=== PATIENT | male | born 1995 | race Caucasian/White ===

== ENCOUNTER 2017-05-22 19:35 | Emergency (ER) | payer SELFPAY ==
[2017-05-22 19:39] VITALS: BMI 23.6
[2017-05-22 20:26] LABS: BILIRUBIN,URINE 1+ (NEGATIVE); BLOOD/HEMOGLOBIN,URINE 1+ (NEGATIVE); GLUCOSE, URINE NEGATIVE (NEGATIVE); KETONES,URINE 3+ (NEGATIVE); LEUKOCYTE ESTERASE ,URINE 1+ (NEGATIVE); NITRITES,URINE NEGATIVE (NEGATIVE); PROTEIN,URINE 2+ (NEGATIVE); UROBILINOGEN,URINE 2+ (NORMAL)
[2017-05-22 20:36] LABS: APPEARANCE,URINE CLOUDY (CLEAR); COLOR,URINE DARK YELLOW (YELLOW)
[2017-05-22 20:37] LABS: AMORPHOUS SEDIMENT,UR 1+ /HPF (NEGATIVE); BACTERIA,URINE 2+ /HPF (NEGATIVE); HYALINE CASTS, URINE MODERATE /LPF (NEGATIVE); MUCUS,URINE MANY /HPF (NEGATIVE); RBC,URINE 0-3 /HPF (NEGATIVE); SQUAMOUS EPITHELIAL CELL,UR RARE /HPF (NEGATIVE)
[2017-05-22 20:50] VITALS: BP 113/68
[2017-05-22] MEDS ORDERED: NS 1000 ML 1,000 ML IV ONE ×2 (21:29→23:13)
[2017-05-22] MEDS ORDERED: NS 1000 ML 1,000 ML ONE ×2 (21:30→23:15)
--- NOTE | 2017-05-22 21:35 | DR.GENAD ---
HPI - PCP Primary Care Physician: nfd - Complaint/Symptoms Chief Complaint Doctors Comments: History as stated. Chief Complaint:: pt states" my heart is runny away and i feel dizzy i haven't eaten in a few days cause i have not been hungry" - Source History Provided: Patient - Mode of Arrival Mode of Arrival: Wheelchair - Timing Onset of Chief Complaint: 05/20/17 PMH - PMH Past Medical History: No Past Surgical History: No Surgical History: Ortho Surgery - Family History History of Family Medical Conditions: Yes Family Medical History: Diabetes Mellitus, Cancer - Social History Type of Tobacco Use: Cigarettes Does any household member use tobacco: No Alcohol Use: None Do you use any recreational Drugs:: No Lives With: Family Lives Where: Home - infectious screening In the last 2 months have you had wt loss of >10#?: NO Have you had fever, night sweats or hemotysis?: No Have you traveled outside the country in the last 6 months?: No Isolation: Standard ROS - Review of Systems Eyes: No Symptoms Reported ENTM: No Symptoms Reported Respiratoy: No Symptoms Reported Cardiovascular: No Symptoms Reported Gastrointestinal/Abdominal: No Symptoms Reported Genitourinary: No Symptoms Reported Neurological: No Symptoms Reported Musculoskeletal: No Symptoms Reported Integumentary: No Symptoms Reported Hematologic/Lymphatic: No Symptoms Reported Endocrine: No Symptoms Reported, Increased Hunger All Other Systems: Reviewed and Negative PE - Vital Signs Vitals: Temperature 98.6 F Pulse Rate [Apical] 97 Pulse Rate 115 Respiratory Rate 26 Blood Pressure [Left Arm] 113/68 Blood Pressure 118/78 O2 Sat by Pulse Oximetry 99 - General Limitations: No Limitations General Appearance: Alert, Anxious - Head Head Exam: Normal Inspection, Atraumatic - Eyes Eye exam: Normal Appearance, PERRL, EOMI - ENT ENT Exam: Normal Exam External Ear Exam: Normal External Inspection TM/Canal Exam: Bilateral Normal Nose Exam: Normal Nose Exam Mouth Exam: Normal Inspection Throat Exam: Normal Inspection - Neck Neck Exam: Normal Inspection - Chest Chest Inspection: Normal Inspection - Respiratory Respiratory Exam: Normal Lung Sounds Bilat Respiratory Exam: Bilateral Clear to Auscultation - Cardiovascular Cardiovascular Exam: Regular Rate, Normal Rhythm Course - Reevaluation 1st: Improved ROR - Labs Reviewed Result Diagrams: 05/22/17 21:40 05/22/17 21:40 Laboratory: WBC 7.9 X10^3/uL (3.6-10.0) 05/22/17 21:40 RBC 5.83 X10^6/uL (4.7-6.0) 05/22/17 21:40 Hgb 17.7 g/dL (13.5-18.0) 05/22/17 21:40 Hct 50.8 % (42.0-54.0) 05/22/17 21:40 MCV 87.2 fL (80.0-100.0) 05/22/17 21:40 MCH 30.4 pg (27.0-34.0) 05/22/17 21:40 MCHC 34.9 g/dL (33.0-35.0) 05/22/17 21:40 RDW 13.7 % (11.6-16.5) 05/22/17 21:40 Plt Count 222 X10^3/uL (150.0-450.0) 05/22/17 21:40 MPV 8.1 fL (7.4-11.0) 05/22/17 21:40 Neut % 63.3 % (42.0-75.0) 05/22/17 21:40 Lymph % 21.6 % (21.0-51.0) 05/22/17 21:40 Fallon % 10.0 % (0.0-13.0) 05/22/17 21:40 Eos % 4.1 % (0.9-2.9) H 05/22/17 21:40 Baso % 1.0 % (0.2-1.0) 05/22/17 21:40 Neut # 5.0 x10^3/uL (2.2-4.8) H 05/22/17 21:40 Lymph # 1.7 X10^3/uL (1.3-2.9) 05/22/17 21:40 Fallon # 0.8 x10^3/uL (0.3-0.8) 05/22/17 21:40 Eos # 0.3 x10^3/uL (0.0-0.2) H 05/22/17 21:40 Baso # 0.1 X10^3/uL (0.0-0.1) 05/22/17 21:40 Absolute Nucleated RBC 0.1 /100WBC 05/22/17 21:40 Sodium 140 mmol/L (136-145) 05/22/17 21:40 Corrected Sodium TNP 05/22/17 21:40 Potassium 4.5 mmol/L (3.5-5.1) 05/22/17 21:40 Chloride 102 mmol/L (98-107) 05/22/17 21:40 Carbon Dioxide 28.9 mmol/L (21-32) 05/22/17 21:40 BUN 18 mg/dL (7-18) 05/22/17 21:40 Creatinine 1.06 mg/dL (0.70-1.30) 05/22/17 21:40 Est GFR (MDRD) Af Amer > 60 (>60) 05/22/17 21:40 Est GFR (MDRD) Non-Af > 60 (>60) 05/22/17 21:40 Glucose 81 mg/dL (65-99) 05/22/17 21:40 Calcium 9.3 mg/dL (8.5-10.1) 05/22/17 21:40 Corrected Calcium TNP 05/22/17 21:40 Total Bilirubin 1.00 mg/dL (0.2-1.0) 05/22/17 21:40 AST 85 Units/L (15-37) H 05/22/17 21:40 ALT 36 Units/L (12-78) 05/22/17 21:40 Alkaline Phosphatase 58 Units/L (46-116) 05/22/17 21:40 Total Protein 7.9 g/dL (6.4-8.2) 05/22/17 21:40 Albumin 4.6 g/dL (3.4-5.0) 05/22/17 21:40 Globulin 3.3 g/dL (2.5-4.5) 05/22/17 21:40 Albumin/Globulin Ratio 1.4 Ratio (1.1-2.1) 05/22/17 21:40 Specimen Type Clean catch urine 05/22/17 20:12 Urine Color Dark yellow (YELLOW) 05/22/17 20:12 Urine Appearance Cloudy (CLEAR) 05/22/17 20:12 Urine pH 5.0 (5.0 - 8.0) 05/22/17 20:12 Ur Specific [place] 1.030 (1.000-1.030) 05/22/17 20:12 Urine Protein 2+ (NEGATIVE) 05/22/17 20:12 Urine Glucose (UA) Negative (NEGATIVE) 05/22/17 20:12 Urine Ketones 3+ (NEGATIVE) 05/22/17 20:12 Urine Occult Blood 1+ (NEGATIVE) 05/22/17 20:12 Urine Nitrite Negative (NEGATIVE) 05/22/17 20:12 Urine Bilirubin 1+ (NEGATIVE) 05/22/17 20:12 Urine Urobilinogen 2+ (NORMAL) 05/22/17 20:12 Ur Leukocyte Esterase 1+ (NEGATIVE) 05/22/17 20:12 Urine RBC 0-3 /HPF (NEGATIVE) 05/22/17 20:12 Urine WBC 6-8 /HPF (NEGATIVE) 05/22/17 20:12 Ur Squamous Epith Cells Rare /HPF (NEGATIVE) 05/22/17 20:12 Amorphous Sediment 1+ /HPF (NEGATIVE) 05/22/17 20:12 Urine Bacteria 2+ /HPF (NEGATIVE) 05/22/17 20:12 Hyaline Casts Moderate /LPF (NEGATIVE) 05/22/17 20:12 Urine Mucus Many /HPF (NEGATIVE) 05/22/17 20:12 Ur Culture Indicated? Yes/culture set up 05/22/17 20:12 Urine Opiates Screen Negative (NEG=<300) 05/22/17 20:12 Urine Methadone Screen Negative (NEG=<300) 05/22/17 20:12 Ur Barbiturates Screen Negative (NEG=<200) 05/22/17 20:12 Ur Phencyclidine Scrn Negative (NEG=<25) 05/22/17 20:12 Ur Amphetamines Screen Positive (NEG=<1000) 05/22/17 20:12 U Benzodiazepines Scrn Negative (NEG=<200) 05/22/17 20:12 Urine Cocaine Screen Negative (NEG=<300) 05/22/17 20:12 U Marijuana (THC) Screen Negative (NEG=<50) 05/22/17 20:12 - XRAY XRAY Interpreted by: Radiologist (Chest: lungs clear) - Diagnosis Discharge Problem: Amphetamine abuse - Discharge Plan Condition: Stable - Follow ups/Referrals Follow ups/Referrals: NFD,None [Primary Care Provider] - 3 days - Instructions
[2017-05-22 21:51] LABS: BASOPHILS # (AUTO) 0.1 X10^3/uL (0.0-0.1); EOSINOPHILS # (AUTO) 0.3 x10^3/uL (0.0-0.2); EOSINOPHILS % (AUTO) 4.1 % (0.9-2.9); HEMATOCRIT 50.8 % (42.0-54.0); HEMOGLOBIN 17.7 g/dL (13.5-18.0); LYMPHOCYTES # (AUTO) 1.7 X10^3/uL (1.3-2.9); LYMPHOCYTES % (AUTO) 21.6 % (21.0-51.0); MEAN CORPUSCULAR HEMOGLOBIN 30.4 pg (27.0-34.0); MEAN CORPUSCULAR HGB CONC 34.9 g/dL (33.0-35.0); MEAN CORPUSCULAR VOLUME 87.2 fL (80.0-100.0); MEAN PLATELET VOLUME 8.1 fL (7.4-11.0); MONOCYTES # (AUTO) 0.8 x10^3/uL (0.3-0.8); NEUTROPHILS % (AUTO) 63.3 % (42.0-75.0); PLATELET COUNT 222 X10^3/uL (150.0-450.0); RED BLOOD COUNT 5.83 X10^6/uL (4.7-6.0); RED CELL DISTRIBUTION WIDTH 13.7 % (11.6-16.5); WHITE BLOOD COUNT 7.9 X10^3/uL (3.6-10.0)
--- NOTE | 2017-05-22 22:00 | RAD ---
Portable chest Indication: Dyspnea and chest pain. Comparison: March 09, 2013 Impression: Heart size is normal. The lungs are hyperexpanded but clear. There is no focal consolidation, edema, effusion, or pneumothorax. No acute skeletal abnormality is seen. Reported By:
[2017-05-22 22:02] LABS: ALANINE AMINOTRANSFERASE 36 Units/L (12-78); ALBUMIN 4.6 g/dL (3.4-5.0); ALKALINE PHOSPHATASE 58 Units/L (46-116); ASPARTATE AMINO TRANSFERASE 85 Units/L (15-37); BLOOD UREA NITROGEN 18 mg/dL (7-18); CALCIUM 9.3 mg/dL (8.5-10.1); CARBON DIOXIDE 28.9 mmol/L (21-32); CHLORIDE 102 mmol/L (98-107); CREATININE 1.06 mg/dL (0.70-1.30); GLUCOSE 81 mg/dL (65-99); SODIUM 140 mmol/L (136-145); TOTAL PROTEIN 7.9 g/dL (6.4-8.2); eGFR BLACK RACES > 60 (>60); eGFR NON BLACK RACES > 60 (>60)
[2017-05-22] MEDS ORDERED: ROCEPHIN 1 GM IV PREMIX * OUT OF STOCK 50 ML IV ONE (22:53)
[2017-05-22] MEDS ORDERED: ROCEPHIN VIAL 1 GM 1 GM in NS 50 ML IV + SPIKE MINIBAG* 50 ML IV SCH (23:00)
== END 2017-05-23 00:45 | disposition home or self-care (01) ==
LOC: ER 19:35
DX: F15.10 Other stimulant abuse, uncomplicated (principal)
CPT/HCPCS: 36415; 71010; 80053; 80307; 81001; 85025; 87086; 96365; 96367; 96374; 99283; A4222; G0434; J0696

== ENCOUNTER 2017-09-25 20:12 | Emergency (ER) | payer SELFPAY ==
[2017-09-25 20:18] VITALS: BP 141/81; BMI 23.6
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
--- NOTE | 2017-09-25 21:55 | RAD ---
Chest PA and lateral Indication: Hemoptysis. Sore throat. Comparison: 05/22/2017. Findings: There is no pneumothorax or effusion. There is no consolidation. Heart size is normal. Impression: No acute chest process. Reported By:
== END 2017-09-25 22:49 | disposition home or self-care (01) ==
LOC: ER 20:12
DX: J02.9 Acute pharyngitis, unspecified (principal)
CPT/HCPCS: 71020; 87070; 87502; 87880; 99282